=== PATIENT | male | born 1960 | race Two or more races ===

== ENCOUNTER 2023-10-05 05:47 | Emergency (ER) | payer SELFPAY ==
[~2023-10-05] VITALS: Ht 172.7 cm; Wt 74.0 kg
[2023-10-05 07:29] VITALS: BP 125/66; PULSE 57; RESP 18; TEMP 99; O2SAT 97
[2023-10-05] MEDS ORDERED: AMOX875T3 PO (07:40)
[2023-10-05] MEDS ORDERED: PROM1SOL4 PO (07:40)
[2023-10-05] MEDS ORDERED: PRED20TA2 PO (07:40)
== END 2023-10-05 07:46 | disposition home or self-care (01) ==
LOC: ER 05:47
DX: J20.9 Acute bronchitis, unspecified (principal); J03.90 Acute tonsillitis, unspecified; R07.89 Other chest pain
CPT/HCPCS: 71046